=== PATIENT | male | born 1975 | race Two or more races ===

== ENCOUNTER 2019-10-08 23:17 | Emergency (ER) | payer SELFPAY ==
[~2019-10-08] VITALS: Ht 167.6 cm; Wt 190.0 kg
[2019-10-08 23:25] VITALS: BP 126/72
[2019-10-09] MEDS ORDERED: LIDOCAINE 1% Multi-Dose 20 ML VIAL. INJ ONE (01:15)
[2019-10-09] MEDS ORDERED: DIPH,PERTUSS(ACELL),TET VAC/PF 0.5 ML SYRINGE. VAX IM ONE (01:45)
[2019-10-09] MEDS ORDERED: CEPH500C PO (01:59)
--- NOTE | 2019-10-09 01:59 | PHYS DOC ---
Past Medical History Past Medical History: No Pertinent History Past Surgical History: No Surgical History Smoking Status: Never Smoker Alcohol Use: None General Adult EDM: Chief Complaint: LACERATION/AVULSION HPI: HPI: Patient is a 44 year old male who presents with laceration to his left index finger. 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 Patient indicates that he is not up-to-date on his tetanus. He rates pain is mild and does indicate that he has some numbness and tingling distal to the wound. [] Review of Systems: Review of Systems: Constitutional: Denies fever or chills. [] Respiratory: Denies cough or shortness of breath. [] Cardiovascular: Denies chest pain or edema. [] Musculoskeletal: Positive left index finger pain. [] Integument: Positive laceration. [] Heart Score: Risk Factors: Risk Factors: DM, Current or recent (<one month) smoker, HTN, HLP, family history of CAD, obesity. Risk Scores: Score 0 - 3: 2.5% MACE over next 6 weeks - Discharge Home Score 4 - 6: 20.3% MACE over next 6 weeks - Admit for Clinical Observation Score 7 - 10: 72.7% MACE over next 6 weeks - Early Invasive Strategies Current Medications: Current Medications Medications (Trade) Dose Ordered Sig/[place] Start Time Stop Time Status Last Admin Dose Admin Diphtheria/ Tetanus/Acell Pertussis (ADACEL TDap SYRINGE) 0.5 ml ONCE ONCE 10/09/19 01:45 10/09/19 01:46 DC 10/09/19 01:56 0.5 ML Lidocaine HCl (Lidocaine 1% 20ml Vial) 20 ml 1X ONCE 10/09/19 01:15 10/09/19 01:17 DC 10/09/19 01:15 20 ML Allergies: Allergies: Allergies Coded Allergies Type Severity Reaction Last Updated Verified No Known Drug Allergies 10/08/19 No Physical Exam: PE: Constitutional: Well developed, well nourished, no acute distress, non-toxic appearance. [] Cardiovascular: Regular rate and rhythm [] Lungs & Thorax: Bilateral breath sounds clear to auscultation [] Skin: Left index finger demonstrates 2 cm laceration to the dorsal aspect mid phalanx that is mostly linear with fairly sharp margins. Laceration extends into subcutaneous tissue. [] Current Patient Data: Vital Signs: Vital Signs Date Time Temp Pulse Resp B/P (MAP) Pulse Ox O2 Delivery O2 Flow Rate FiO2 10/08/19 23:25 97.9 68 16 126/72 (90) 97 Room Air 97.9 EKG: EKG: [] Radiology/Procedures: Radiology/Procedures: [] Course & Med Decision Making: Course & Med Decision Making Pertinent Labs and Imaging studies reviewed. (See chart for details) Laceration was cleaned and draped in normal sterile fashion and after adequate anesthetization with 1% lidocaine, a total of 6 simple interrupted sutures were placed utilizing 5-0 Ethilon suture material with very good reapproximation of wound margins. Patient tolerated procedure well. Dry sterile dressing was placed over wound when completed. Dragon Disclaimer: Dragon Disclaimer: This electronic medical record was generated, in whole or in part, using a voice recognition dictation system. Departure Departure Impression: Primary Impression: Finger laceration Qualified Codes: S61.211A - Laceration without foreign body of left index finger without damage to nail, initial encounter Disposition: HOME, SELF-CARE Condition: STABLE Referrals: NO PCP (PCP) Patient Instructions: Form - Excuse from Work, School, or Physical Activity, Laceration Care, Adult Additional Instructions: Return in 10 to 14 days for suture removal. Scripts Cephalexin (CEPHALEXIN) 500 Mg Capsule 1 CAP PO BID, #20 CAP Prov: LIZETTE SUTTON Jr. DO 10/09/19 LIZETTE SUTTON Jr. DO Oct 09, 2019 01:59
== END 2019-10-09 02:03 | disposition home or self-care (01) ==
LOC: ER 23:17
DX: S61.211A Laceration without foreign body of left index finger without damage to nail, initial encounter (principal); W26.0XXA Contact with knife, initial encounter; Y93.89 Activity, other specified; Y92.89 Other specified places as the place of occurrence of the external cause; Y99.8 Other external cause status
CPT/HCPCS: 12001; 90471; 90715; 99283; J3490